=== PATIENT | male | born 2000 | race Caucasian/White ===

== ENCOUNTER 2021-01-04 11:55 | Emergency (ER) | payer OTHER ==
[2021-01-04 11:59] VITALS: BP 129/74; PULSE 73; TEMP 97; BMI 22.6
== END 2021-01-04 12:44 | disposition home or self-care (01) ==
LOC: JER 11:55
DX: K06.9 Disorder of gingiva and edentulous alveolar ridge, unspecified (principal)
CPT/HCPCS: 71046-TC-FY; 99283-25

== ENCOUNTER 2023-04-22 10:43 | Emergency (ER) | payer OTHER ==
[2023-04-22 10:59] VITALS: BP 138/83; PULSE 78; RESP 18; TEMP 98.8; BMI 22.6
[2023-04-22] MEDS ORDERED: IBUPROFEN 600 MG TABLET (FP) PO ONE (11:51)
[2023-04-22] MEDS: IBUPROFEN 600 MG TABLET (FP) PO ONE (11:56)
== END 2023-04-22 12:40 | disposition home or self-care (01) ==
LOC: JERFT 10:43 → JER 10:43 → JERFT 12:40
DX: R05.9 Cough, unspecified (principal); R09.81 Nasal congestion; M79.10 Myalgia, unspecified site; R68.83 Chills (without fever); J10.1 Influenza due to other identified influenza virus with other respiratory manifestations; Z20.822 Contact with and (suspected) exposure to COVID-19
CPT/HCPCS: 0241U-QW; 99283-25